=== PATIENT | male | born 1935 | race Caucasian/White ===

== ENCOUNTER 2019-08-05 07:09 | Day surgery (SDC) | payer OTHER ==
[~2019-08-05] VITALS: Ht 175.3 cm; Wt 77.1 kg
[2019-08-05] MEDS ORDERED: FERR-20 PO (08:12)
[2019-08-05] MEDS ORDERED: CHOL100013 PO (08:12)
[2019-08-05] MEDS ORDERED: LACT1CAP65 PO (08:13)
[2019-08-05] MEDS ORDERED: ATOR10TA PO (08:17)
[2019-08-05] MEDS ORDERED: OMEP20TC12 PO (08:17)
[2019-08-05] MEDS ORDERED: METO-485 PO (08:17)
[2019-08-05] MEDS ORDERED: METF1000 PO (08:17)
[2019-08-05] MEDS ORDERED: MIDAZOLAM 2 MG/2 ML VIAL ONE (08:53)
[2019-08-05] MEDS ORDERED: diphenhydrAMINE 50 MG/ML VIAL ONE (08:53)
[2019-08-05] MEDS ORDERED: fentaNYL 0.05 MG/ML VIAL ONE (08:54)
[2019-08-05] MEDS ORDERED: fentaNYL 0.05 MG/ML VIAL IVP ONE (09:10)
[2019-08-05] MEDS ORDERED: MIDAZOLAM 2 MG/2 ML VIAL IVP ONE (09:11)
== END 2019-08-05 10:30 | disposition home or self-care (01) ==
LOC: MMU 07:09 → MDS 07:09
PROVIDERS: ATTEND Internal Medicine
DX: K29.61 Other gastritis with bleeding (principal); D50.9 Iron deficiency anemia, unspecified; K44.9 Diaphragmatic hernia without obstruction or gangrene; K22.70 Barrett's esophagus without dysplasia; I10 Essential (primary) hypertension; E11.9 Type 2 diabetes mellitus without complications; E78.5 Hyperlipidemia, unspecified
CPT/HCPCS: 36415; 43239; 86677; 88305; 88313; J2250; J3010; J7030; J1200